=== PATIENT | female | born 1985 | race Caucasian/White ===

== ENCOUNTER 2017-08-10 10:03 | Emergency (ER) | payer BC ==
--- NOTE | 2017-08-10 10:29 | ER Document Report ---
ED Medical Screen (RME) - General Chief Complaint: Flank Pain Stated Complaint: FLANK PAIN Time Seen by Provider: 08/10/17 10:28 Notes: This patient has no chronic medical problems and denies any previous surgeries. She states she felt fine when she woke up this morning and she had the sudden onset of left flank pain going to the left lower abdomen. She is mildly nauseous. She states she has never had a kidney stone before. No blood in the urine. She does say she has some mild burning with urination since the pain started. She denied any knowledge of currently being . She declined any pain medicine at this time. TRAVEL OUTSIDE OF THE [place] IN LAST 30 DAYS: No - Related Data Allergies/Adverse Reactions: naproxen [From Aleve] Allergy (Verified 08/10/17 10:24) Hives ciprofloxacin Adverse Reaction (Verified 08/10/17 10:24) Hallucinations levofloxacin [From Levaquin] Adverse Reaction (Verified 08/10/17 10:24) Hallucinations Past Medical History - Social History Chew tobacco use (# tins/day): No Frequency of alcohol use: Occasional Drug Abuse: None Renal/ Medical History: Denies: Hx Peritoneal Dialysis Surgical Hx: Negative - Immunizations History of Influenza Vaccine for 07/2017 - 12/2017 Season: No Physical Exam - Vital signs Vitals: Temp Pulse Resp BP Pulse Ox 97.7 F 83 18 113/72 100 08/10/17 10:07 08/10/17 10:07 08/10/17 10:07 08/10/17 10:07 08/10/17 10:07 Course - Vital Signs Vital signs: Temp Pulse Resp BP Pulse Ox 97.7 F 83 18 113/72 100 08/10/17 10:07 08/10/17 10:07 08/10/17 10:07 08/10/17 10:07 08/10/17 10:07
[2017-08-10 10:55] LABS: ABSOLUTE LYMPHOCYTES (AUTO) 1.9 10^3/uL (0.5-4.7); ABSOLUTE MONOCYTES (AUTO) 0.5 10^3/uL (0.1-1.4); ABSOLUTE NEUT (AUTO) 4.3 10^3/uL (1.7-8.2); BASOPHILS % (AUTO) 0.6 % (0-2); EOSINOPHILS % (AUTO) 0.6 % (0-6); HEMATOCRIT 38.9 % (36.0-47.0); HEMOGLOBIN 13.8 g/dL (12.0-15.5); HGB HCT DIFFERENCE 2.5; LYMPHOCYTES % (AUTO) 27.9 % (13-45); MEAN CORPUSCULAR HEMOGLOBIN 30.2 pg (27.0-33.4); MEAN CORPUSCULAR HGB CONC 35.4 g/dL (32.0-36.0); MEAN CORPUSCULAR VOLUME 85 fl (80-97); MONOCYTES % (AUTO) 6.7 % (3-13); RED BLOOD COUNT 4.56 10^6/uL (3.72-5.28); RED CELL DISTRIBUTION WIDTH 12.9 % (11.5-14.0); SEGMENTED NEUTROPHILS % (AUTO) 64.2 % (42-78); WHITE BLOOD COUNT 6.7 10^3/uL (4.0-10.5)
[2017-08-10 10:58] LABS: APPEARANCE,URINE CLEAR; BILIRUBIN,URINE NEGATIVE (NEGATIVE); GLUCOSE, URINE NEGATIVE (NEGATIVE); KETONES,URINE NEGATIVE (NEGATIVE); LEUKOCYTE ESTERASE,URINE NEGATIVE (NEGATIVE); NITRITE,URINE NEGATIVE (NEGATIVE); PROTEIN,URINE NEGATIVE (NEGATIVE); URINE SPECIFIC GRAVITY 1.006; UROBILINOGEN,URINE NEGATIVE mg/dL (<2.0)
[2017-08-10 11:11] LABS: ALANINE AMINOTRANSFERASE 35 U/L (9-52); ALBUMIN 5.1 g/dL (3.5-5.0); ALKALINE PHOSPHATASE 46 U/L (38-126); ANION GAP 15 (5-19); ASPARTATE AMINO TRANSFERASE 27 U/L (14-36); BILIRUBIN,DIRECT 0.3 mg/dL (0.0-0.4); BILIRUBIN,TOTAL 0.7 mg/dL (0.2-1.3); BLOOD UREA NITROGEN 12 mg/dL (7-20); CALCIUM 9.4 mg/dL (8.4-10.2); CARBON DIOXIDE 25 mmol/L (22-30); CHLORIDE 99 mmol/L (98-107); CREATININE RESULT 0.61 mg/dL (0.52-1.25); GLUCOSE 101 mg/dL (75-110); POTASSIUM 3.9 mmol/L (3.6-5.0); SODIUM 138.7 mmol/L (137-145); TOTAL PROTEIN 8.3 g/dL (6.3-8.2)
[2017-08-10] MEDS ORDERED: TAMSULOSIN HCL 0.4 MG CAP.SR.24H PO ONE (11:47)
[2017-08-10] MEDS ORDERED: OXYCODONE-ACETAMINOPHEN 5-325 MG TABLET PO ONE (11:47)
[2017-08-10] MEDS ORDERED: ONDANSETRON 4 MG TAB.RAPDIS PO ONE (11:48)
--- NOTE | 2017-08-10 11:51 | ER Document Report ---
ED General - General Chief Complaint: Flank Pain Stated Complaint: FLANK PAIN Time Seen by Provider: 08/10/17 10:28 TRAVEL OUTSIDE OF THE [place] IN LAST 30 DAYS: No - HPI Patient complains to provider of: Acute onset left flank pain Notes: Patient coming in for acute onset of left flank pain ongoing just prior to arrival states recently moved to the area from [place]. Patient states acute onset left flank pain denies a history of kidney stones denies any fever chills states when the pain occurs she does have nausea no vomiting. No diarrhea. Patient denies any trauma. Patient resting comfortably upon my evaluation. States pain has resolved however was intermittent prior to her arrival here. - Related Data Allergies/Adverse Reactions: naproxen [From Aleve] Allergy (Verified 08/10/17 10:24) Hives ciprofloxacin Adverse Reaction (Verified 08/10/17 10:24) Hallucinations levofloxacin [From Levaquin] Adverse Reaction (Verified 08/10/17 10:24) Hallucinations Past Medical History - Social History Smoking Status: Never Smoker Chew tobacco use (# tins/day): No Frequency of alcohol use: Occasional Drug Abuse: None Family History: Reviewed & Not Pertinent Patient has suicidal ideation: No Patient has homicidal ideation: No Renal/ Medical History: Denies: Hx Peritoneal Dialysis Surgical Hx: Negative Review of Systems - Review of Systems Constitutional: No symptoms reported EENT: No symptoms reported Cardiovascular: No symptoms reported Respiratory: No symptoms reported Gastrointestinal: No symptoms reported Genitourinary: Flank pain Female Genitourinary: No symptoms reported Musculoskeletal: No symptoms reported Skin: No symptoms reported Hematologic/Lymphatic: No symptoms reported Neurological/Psychological: No symptoms reported -: Yes All other systems reviewed and negative Physical Exam - Vital signs Vitals: Temp Pulse Resp BP Pulse Ox 97.7 F 83 18 113/72 100 08/10/17 10:07 08/10/17 10:07 08/10/17 10:07 08/10/17 10:07 08/10/17 10:07 Interpretation: Normal - General General appearance: Appears well, Alert - HEENT Head: Normocephalic, Atraumatic Eyes: Normal Pupils: PERRL - Respiratory Respiratory status: No respiratory distress Chest status: Nontender Breath sounds: Normal Chest palpation: Normal - Cardiovascular Rhythm: Regular Heart sounds: Normal auscultation Murmur: No - Abdominal Inspection: Normal Distension: No distension Bowel sounds: Normal Tenderness: Nontender Organomegaly: No organomegaly - Back Back: Normal, Nontender - Extremities General upper extremity: Normal inspection, Nontender, Normal color, Normal ROM , Normal temperature General lower extremity: Normal inspection, Nontender, Normal color, Normal ROM , Normal temperature, Normal weight bearing. No: Callie's sign - Neurological Neuro grossly intact: Yes Cognition: Normal Orientation: AAOx4 [place] Coma Scale Eye Opening: Spontaneous [place] Coma Scale Verbal: Oriented [place] Coma Scale Motor: Obeys Commands [place] Coma Scale Total: 15 Speech: Normal Motor strength normal: LUE, RUE, LLE, RLE Sensory: Normal - Psychological Associated symptoms: Normal affect, Normal mood - Skin Skin Temperature: Warm Skin Moisture: Dry Skin Color: Normal Course - Re-evaluation Re-evalutation: 08/10/17 15:02 Patient laboratory studies shows hematuria. More likely with the patient's story of flank pain intermittent with nausea consistent with renal colic caused by kidney stone. Explained to the patient that we could offer her a CAT scan at this time however will be a large amount of radiation patient declines. Explained to the patient that we will treat her symptoms as of the patient has no signs of infection or renal failure. Patient is encouraged to drink plenty water will be given prescriptions for oxycodone on Flomax Zofran. Patient was also given a list of primary care physicians to follow-up within the area. - Vital Signs Vital signs: Temp Pulse Resp BP Pulse Ox 98.2 F 83 16 116/67 100 08/10/17 12:25 08/10/17 12:25 08/10/17 12:25 08/10/17 12:25 08/10/17 12:25 - Laboratory Result Diagrams: 08/10/17 10:34 08/10/17 10:34 Laboratory results interpreted by me: 08/10/17 08/10/17 08/10/17 10:34 10:34 10:41 Plt Count 140 L Total Protein 8.3 H Albumin 5.1 H Urine Blood LARGE H Discharge - Discharge Clinical Impression: Left flank pain Disposition: HOME, SELF-CARE Instructions: Family Physicians / Practices, Kidney Stone ([facility]), Oral Narcotic Medication ([facility]) Additional Instructions: Your laboratory studies today show no signs of infection or renal insufficiency or renal failure. Urinalysis does have blood consistent with possible kidney stone. We will treat you as such please take medication as prescribed he may also take Tylenol and Motrin for pain control. Please follow-up with [facility] local primary care physicians. Prescriptions: Ondansetron [Zofran Odt 4 mg Tablet] 4 mg PO Q4HP PRN #30 tab.rapdis PRN Reason: Oxycodone HCl 5 mg PO Q6 #30 tablet Tamsulosin HCl [Flomax 0.4 mg Cap.sr] 0.4 mg PO DAILY #7 cap.sr.24h Forms: Return to Work
[2017-08-10 12:35] VITALS: BP 116/67
== END 2017-08-10 12:35 | disposition home or self-care (01) ==
LOC: ER 10:03
DX: R10.9 Unspecified abdominal pain (principal)
CPT/HCPCS: 99284; 36415; 85025; 81025; 80053; 81001; S0119

== ENCOUNTER 2018-11-12 18:48 | Emergency (ER) | payer BC ==
--- NOTE | 2018-11-12 20:02 | ER Document Report ---
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 She developed right lower quadrant abdominal pain and cramping with dark red vaginal bleeding today. In the last half an hour or so the pain is now felt on both sides of the lower abdomen pelvis region. She is known to be blood type A(-). I have greeted and performed a rapid initial assessment of this patient. A comprehensive ED assessment and evaluation of the patient, analysis of test results and completion of the medical decision making process will be conducted by additional ED providers. TRAVEL OUTSIDE OF THE [place] IN LAST 30 DAYS: No - Related Data Allergies/Adverse Reactions: naproxen [From Aleve] Allergy (Verified 08/10/17 10:24) Hives ciprofloxacin Adverse Reaction (Verified 08/10/17 10:24) Hallucinations levofloxacin [From Levaquin] Adverse Reaction (Verified 08/10/17 10:24) Hallucinations Past Medical History - General Last Menstrual Period: 10/03/18 - Social History Frequency of alcohol use: Rare Drug Abuse: None Renal/ Medical History: Denies: Hx Peritoneal Dialysis - Immunizations History of Influenza Vaccine for 07/2017 - 12/2017 Season: No Physical Exam - Vital signs Vitals: Temp Pulse Resp BP Pulse Ox 98.0 F 99 16 125/63 100 11/12/18 19:11 11/12/18 19:11 11/12/18 19:11 11/12/18 19:11 11/12/18 19:11 Course - Vital Signs Vital signs: Temp Pulse Resp BP Pulse Ox 98.0 F 99 16 125/63 100 11/12/18 19:11 11/12/18 19:11 11/12/18 19:11 11/12/18 19:11 11/12/18 19:11
[2018-11-12 20:23] LABS: ABSOLUTE BASOPHILS # (AUTO) 0.1 10^3/uL (0.0-0.2); ABSOLUTE LYMPHOCYTES (AUTO) 1.4 10^3/uL (0.5-4.7); ABSOLUTE MONOCYTES (AUTO) 0.5 10^3/uL (0.1-1.4); ABSOLUTE NEUT (AUTO) 8.2 10^3/uL (1.7-8.2); BASOPHILS % (AUTO) 0.5 % (0-2); EOSINOPHILS % (AUTO) 0.2 % (0-6); HEMATOCRIT 37.8 % (36.0-47.0); HEMOGLOBIN 13.1 g/dL (12.0-15.5); LYMPHOCYTES % (AUTO) 13.5 % (13-45); MEAN CORPUSCULAR HEMOGLOBIN 29.5 pg (27.0-33.4); MEAN CORPUSCULAR HGB CONC 34.6 g/dL (32.0-36.0); MEAN CORPUSCULAR VOLUME 85 fl (80-97); PLATELET COUNT 175 10^3/uL (150-450); RED BLOOD COUNT 4.43 10^6/uL (3.72-5.28); SEGMENTED NEUTROPHILS % (AUTO) 80.8 % (42-78); TOTAL CELLS COUNTED % (AUTO) 100 %; WHITE BLOOD COUNT 10.1 10^3/uL (4.0-10.5)
[2018-11-12 20:34] LABS: APPEARANCE,URINE CLEAR; BILIRUBIN,URINE NEGATIVE (NEGATIVE); COLOR,URINE STRAW; GLUCOSE, URINE NEGATIVE (NEGATIVE); KETONES,URINE NEGATIVE (NEGATIVE); LEUKOCYTE ESTERASE,URINE NEGATIVE (NEGATIVE); NITRITE,URINE NEGATIVE (NEGATIVE); PROTEIN,URINE NEGATIVE (NEGATIVE); URINE SPECIFIC GRAVITY 1.002; UROBILINOGEN,URINE NEGATIVE mg/dL (<2.0)
[2018-11-12 20:39] LABS: ALANINE AMINOTRANSFERASE 29 U/L (9-52); ALBUMIN 4.9 g/dL (3.5-5.0); ALKALINE PHOSPHATASE 36 U/L (38-126); ANION GAP 8 (5-19); ASPARTATE AMINO TRANSFERASE 25 U/L (14-36); BILIRUBIN,DIRECT 0.2 mg/dL (0.0-0.4); BILIRUBIN,TOTAL 0.4 mg/dL (0.2-1.3); BLOOD UREA NITROGEN 7 mg/dL (7-20); CALCIUM 9.4 mg/dL (8.4-10.2); CARBON DIOXIDE 22 mmol/L (22-30); CHLORIDE 107 mmol/L (98-107); GLUCOSE 102 mg/dL (75-110); POTASSIUM 3.8 mmol/L (3.6-5.0); SODIUM 137.4 mmol/L (137-145); TOTAL PROTEIN 7.9 g/dL (6.3-8.2)
--- NOTE | 2018-11-12 22:47 | RADIOLOGY REPORT (SQ) ---
EXAM DESCRIPTION: US TRANSVAGINAL COMPLETED DATE/TME: 11/12/2018 20:00 CLINICAL HISTORY: 33 years, Female, 6 weeks, pelvic pain, cramps with dark red blood COMPARISON: None. TECHNIQUE: Transverse and longitudinal transvaginal sonographic images in a first trimester patient LIMITATIONS: None. FINDINGS: The uterus measures 7.3 x 6.0 x 4.6 cm. No visible IUP at this time. The endometrium measures 8 mm in thickness. Trace of free fluid in the pelvis. The right ovary is not well seen likely due to its position in the pelvis. The left ovary measures 3.2 x 2.0 x 2.1 cm. A subtle 2.3 x 1.5 x 1.4 cm cystic focus of the left ovary may reflect corpus luteal cyst. No solid adnexal mass. IMPRESSION: There is no intrauterine gestation at this time. Correlate with beta hCG levels. Obstetric follow-up recommended. Nonvisualization of the right ovary likely due to its position in the pelvis. Probable corpus luteal cyst of the left ovary. Trace of free fluid. copyright 2010 [employer]- All Rights Reserved
--- NOTE | 2018-11-12 23:08 | ER Document Report ---
ED General - General Chief Complaint: Vag Bleeding, +preg <12wks Stated Complaint: ABDOMINAL PAIN AND BLEEDING Time Seen by Provider: 11/12/18 19:51 Notes: Patient is a 33-year-old female at approximately 6 weeks by LMP who presents with 12 hours of lower abdominal cramping more dominant to the right side as well as vaginal bleeding. Does describe the pain in her right lower abdomen as being a burning, aching pain. Nothing seems to improve or worsen this pain. She states that she has had moderate vaginal bleeding and spotting. Nothing seems to improve or worsen her symptoms. No history of similar symptoms during this . She has not seen her [facility] [employer] [employer] regarding this . Positive test was approximately 3 weeks ago. TRAVEL OUTSIDE OF THE [place] IN LAST 30 DAYS: No - Related Data Allergies/Adverse Reactions: naproxen [From Aleve] Allergy (Verified 08/10/17 10:24) Hives ciprofloxacin Adverse Reaction (Verified 08/10/17 10:24) Hallucinations levofloxacin [From Levaquin] Adverse Reaction (Verified 08/10/17 10:24) Hallucinations Past Medical History - General Information source: Patient Last Menstrual Period: 10/03/18 - Social History Smoking Status: Never Smoker Frequency of alcohol use: Rare Drug Abuse: None Lives with: Spouse/Significant other Family History: Reviewed & Not Pertinent Patient has suicidal ideation: No Patient has homicidal ideation: No Renal/ Medical History: Denies: Hx Peritoneal Dialysis Review of Systems - Review of Systems Notes: Constitutional: Negative for fever. HENT: Negative for sore throat. Eyes: Negative for visual changes. Cardiovascular: Negative for chest pain. Respiratory: Negative for shortness of breath. Gastrointestinal: Positive for lower abdominal pain Genitourinary: Positive vaginal bleeding Musculoskeletal: Negative for back pain. Skin: Negative for rash. Neurological: Negative for headaches, weakness or numbness. 10 point ROS negative except as marked above and in HPI. Physical Exam - Vital signs Vitals: Temp Pulse Resp BP Pulse Ox 98.0 F 99 16 125/63 100 11/12/18 19:11 11/12/18 19:11 11/12/18 19:11 11/12/18 19:11 11/12/18 19:11 Interpretation: Normal Notes: PHYSICAL EXAMINATION: GENERAL: Well-appearing, well-nourished and in no acute distress. HEAD: Atraumatic, normocephalic. EYES: Pupils equal round and reactive to light, extraocular movements intact, sclera anicteric, conjunctiva are normal. ENT: nares patent, oropharynx clear without exudates. Moist mucous membranes. NECK: Normal range of motion, supple without lymphadenopathy LUNGS: Breath sounds clear to auscultation bilaterally and equal. No wheezes rales or rhonchi. HEART: Regular rate and rhythm without murmurs ABDOMEN: Soft, nontender, normoactive bowel sounds. No guarding, no rebound. No masses appreciated. EXTREMITIES: Normal range of motion, no pitting or edema. No cyanosis. NEUROLOGICAL: No focal neurological deficits. Moves all extremities spontaneousl y and on command. PSYCH: Normal mood, normal affect. SKIN: Warm, Dry, normal turgor, no rashes or lesions noted. Course - Re-evaluation Re-evalutation: 11/12/18 23:03 Patient presents with vaginal bleeding, lower abdominal cramping more numb that started over the last 24 hours after having positive home testing. HCG level is quite low at 49 and the patient's LMP was approximate 6 weeks ago. Transvaginal ultrasound does not an ectopic with nor an intrauterine . Patient is Rh- and has been given RhoGam. Her abdominal exam is benign without any areas of localized tenderness, rebound or guarding. I have informed the patient that this is likely a miscarriage that is ongoing although I have also informed her that we cannot definitively exclude an ectopic at this point although this is quite unlikely. I have informed her directly that she will need to follow-up with her [employer] for recheck of her hCG level to confirm that it is lowering and to definitively exclude an ectopic pre gnancy. Patient and her at that bedside state they understand. She has been provided a copy of her labs and ultrasound report. At this time will discharge with return precautions and follow-up recommendations. Verbal discharge instructions given a the bedside and opportunity for questions given. Medication warnings reviewed. Patient is in agreement with this plan and has verbalized understanding of return precautions and the need for OB follow-up in the next 48 hours. - Vital Signs Vital signs: Temp Pulse Resp BP Pulse Ox 98.5 F 104 H 18 121/77 100 11/12/18 23:39 11/12/18 23:39 11/12/18 23:39 11/12/18 23:39 11/12/18 23:39 - Laboratory Result Diagrams: 11/12/18 20:06 11/12/18 20:06 Laboratory results interpreted by me: 11/12/18 11/12/18 11/12/18 20:01 20:06 20:06 Seg Neutrophils % 80.8 H Creatinine 0.47 L Alkaline Phosphatase 36 L Beta HCG, Quant 49.60 H Urine Blood LARGE H - Diagnostic Test Radiology reviewed: Reports reviewed Discharge - Discharge Clinical Impression: Vaginal bleeding during , Abdominal pain of right lower quadrant during , antepartum Condition: Good Disposition: HOME, SELF-CARE Additional Instructions: You need to return to the ED or the women's health clinic in 48 hours for a recheck of your hormone level. The ultrasound is unable to see anything at this time because you are too early in your or because your actively having a miscarriage. We cannot definitively exclude an ectopic at this time. Please return if you develop severe abdominal pain, bleeding that goes through more than 2 pads for more than 2 hours, pass out, or have any other symptoms that are concerning to you. Please follow-up closely with your OBGYN regarding todays visit.
[2018-11-12 23:53] VITALS: BP 116/75
== END 2018-11-12 23:59 | disposition home or self-care (01) ==
LOC: ER 18:48
DX: O46.91 Antepartum hemorrhage, unspecified, first trimester (principal); O26.891 Other specified pregnancy related conditions, first trimester; R10.31 Right lower quadrant pain; Z3A.01 Less than 8 weeks gestation of pregnancy
CPT/HCPCS: 99284; 96372; 86900; 86901; 36415; 86850; 84702; 85025; 80053; 81001; 76817; J2790